=== PATIENT | female | born 1945 | race Caucasian/White ===

== ENCOUNTER 2022-02-19 21:07 | Inpatient (IN) | payer MEDICARE ==
[~2022-02-19] VITALS: Ht 154.9 cm; Wt 65.3 kg
--- NOTE | 2022-02-19 20:30 | NUR ---
Admitted this 76 y/o female from [facility] via [facility]. Awake, alert and oriented x 4. Not in resp distress. Transferred from [facility] to bed with 2 person assist. Oriented to room, staffs, call light, TV remote and bed control. Routine admission care done, plan of care initiated. Safety measures and fall precaution initiated. Call light within reach.
--- NOTE | 2022-02-19 20:31 | NUR ---
Patient admitted with muñoz cath intact and patent draining to yellow color urine, no hematuria, no sediments noted.
[2022-02-19 20:33] VITALS: BP 142/59
[2022-02-19] MEDS ORDERED: REMEDY ESSENTIAL ZINC PASTE 113 GM TOP SCH (21:30)
[2022-02-19] MEDS ORDERED: LEVO75TA7 PO (21:56)
[2022-02-19] MEDS ORDERED: DOCU100C36 PO (21:56)
[2022-02-19] MEDS ORDERED: RIVA10TA PO (21:56)
[2022-02-19] MEDS ORDERED: FLEC100T2 PO (21:56)
[2022-02-20 04:03] VITALS: BP 133/45
[2022-02-20] MEDS ORDERED: REMEDY ESSENTIAL ZINC PASTE 113 GM TOP PRN (05:29)
[2022-02-20] MEDS: LEVOTHYROXINE SODIUM 75 MCG TABLET PO SCH (06:18)
[2022-02-20 08:00] VITALS: BP 126/58
[2022-02-20] MEDS: DOCUSATE SODIUM 100 MG CAPSULE PO SCH ×2 (08:54→17:24)
[2022-02-20] MEDS: HYDROCODONE/APAP 10-325 MG TABLET PO PRN (08:55)
--- NOTE | 2022-02-20 08:55 | NUR ---
LAERT AND ORIENTED C/O INCISIONAL PAIN MEDICATED WITH TYLENOL WITH CODEINE ORDERED AND READY FOR THERAPEUTIC EXERCISES WILL CONTINUE TO OBSERVE.
[2022-02-20] MEDS: FLECAINIDE ACETATE 100 MG TABLET PO SCH ×2 (08:56→17:18)
[2022-02-20] MEDS ORDERED: RIVAROXABAN 10 MG TABLET PO SCH ×2 (09:00)
[2022-02-20 16:03] VITALS: BP 120/44
[2022-02-20] MEDS: RIVAROXABAN 10 MG TABLET PO SCH (17:18)
--- NOTE | 2022-02-20 18:00 | NUR ---
RESTING IN PAIN STATED NO PAIN AT THIS TIME XARELTO GIVEN ORDERED WITH NO ADVERSE EFFECTS AT THIS TIME WILL CONTINUE TO OBSERVE.
[2022-02-20 21:23] VITALS: BP 127/76
--- NOTE | 2022-02-21 03:00 | NUR ---
Schwartz cath removed per Mike Villegas NP order. No noted urinary retention, no c/o bladder discomfort at this time.
[2022-02-21 04:43] VITALS: BP 140/59
[2022-02-21] MEDS: LEVOTHYROXINE SODIUM 75 MCG TABLET PO SCH (06:32)
[2022-02-21 08:00] VITALS: BP 129/56
[2022-02-21] MEDS: HYDROCODONE/APAP 10-325 MG TABLET PO PRN (08:25)
[2022-02-21] MEDS: FLECAINIDE ACETATE 100 MG TABLET PO SCH ×2 (08:25→16:41)
[2022-02-21] MEDS: DOCUSATE SODIUM 100 MG CAPSULE PO SCH ×2 (08:25→16:41)
--- NOTE | 2022-02-21 08:25 | NUR ---
AWAKE ALERT AND ORIENTED REQUESTING FOR PAIN MEDICATION IN PREPARATION FOR PHYSICAL THERAPEUTIC EXERCISES NORCO GIVEN ORDERED.S/P DANIELSON CATH REMOVAL NOT VOIDED YET FLUIDS ENCOURAGED.CALL LIGHTS AND PERSONAL BELONGINGS ARE WITHIN EASY REACH WILL CONTINUE TO OBSERVE.
--- NOTE | 2022-02-21 12:00 | NUR ---
PATIENT VOIDED ADEQUATE AMOUNT PATIENT STATED THAT SHE HAS NOT MOVED HER BOWEL AND IS CONSTIPATED BRIGID PROVIDER NOTIFIED WITH ORDERS WILL CONTINUE TO OBSERVE.
[2022-02-21] MEDS: MIRALAX 17 GM POWD.PACK PO SCH (12:54)
--- NOTE | 2022-02-21 15:00 | NUR ---
PER THE THERAPIST PATIENT HAD C/O HAS SOME TINGLING ON HER RIGHT LEG BUT WHEN I CHECKED PATIENT STATED IT WAS TEMPORARY AND WENT AWAY SHE HAS ADEQUATE CIRCULATION AND ABLE TO WIGGLE HER TOES AND LEG WILL CONTINUE TO OBSERVE AND INFORM MD NEEDED.
--- NOTE | 2022-02-21 17:04 | NUR ---
NOTED SMALL AMOUNT OF SEROUS DRAINAGE ON THE SURGICAL DRESSING CLEANSED WITH NORMAL SALINE AND CHANGED WITH DRY SURGICAL DRESSING MAGY INTACT WILL CONTINUE TO OBSERVE.
[2022-02-21] MEDS: RIVAROXABAN 10 MG TABLET PO SCH (17:10)
--- NOTE | 2022-02-21 18:12 | NUR ---
CONTINUE ON XARELTO ORDERED WITH NO S/S OF BLEEDING AT THIS TIME.
[2022-02-21 20:00] VITALS: BP 97/61
[2022-02-22 04:00] VITALS: BP 131/51
[2022-02-22 06:09] LABS: HEMATOCRIT 28.5 % (31.2-41.9); MEAN CORPUSCULAR HEMOGLOBIN 30.1 uug (24.7-32.8); MEAN CORPUSCULAR VOLUME 90.1 fL (75.5-95.3); PLATELET COUNT (AUTO) 339 K/uL (179-408)
[2022-02-22 06:15] LABS: CREATININE 0.6 mg/dL (0.6-1.3); POTASSIUM 3.9 mmol/L (3.5-5.1)
[2022-02-22] MEDS: LEVOTHYROXINE SODIUM 75 MCG TABLET PO SCH (06:23)
[2022-02-22 07:51] VITALS: BP 133/46
[2022-02-22] MEDS: HYDROCODONE/APAP 10-325 MG TABLET PO PRN (08:14)
[2022-02-22] MEDS: FLECAINIDE ACETATE 100 MG TABLET PO SCH ×2 (08:14→17:04)
[2022-02-22] MEDS: MIRALAX 17 GM POWD.PACK PO SCH (08:14)
[2022-02-22] MEDS: DOCUSATE SODIUM 100 MG CAPSULE PO SCH ×2 (08:14→17:04)
[2022-02-22 15:15] VITALS: BP 120/51
--- NOTE | 2022-02-22 16:01 | NUR ---
INDIVIDUALIZED PLAN OF CARE
[2022-02-22] MEDS: ENSURE ENLIVE (VAN) 240 ML LIQUID PO SCH (17:05)
[2022-02-22] MEDS: ARGININE/GLUTAMINE/CALCIUM BMB 1 EACH POWD.PACK PO SCH (17:05)
[2022-02-22] MEDS: RIVAROXABAN 10 MG TABLET PO SCH (17:07)
[2022-02-22 20:00] VITALS: BP 110/46
[2022-02-23 04:00] VITALS: BP 122/41
[2022-02-23] MEDS: LEVOTHYROXINE SODIUM 75 MCG TABLET PO SCH (06:02)
--- NOTE | 2022-02-23 07:27 | NUR ---
Patient alert oriented, no complain of pain, ambulate to toilet x 2, tolerate well, cont to monitor.
--- NOTE | 2022-02-23 07:31 | NUR ---
PATIENTS AWAKE ALERT AND ORIENTED DENIES PAIN OR DISCOMFORTS AT THIS TIME ON ROOM AIR WITH NO SHORTNESS OF BREATH AT THIS TIME RIGHT HIP WITH DRESSING INTACT CALL LIGHT AND PERSONAL BELONGINGS ARE WITHIN EASY REACH WILL CONTINUE TO OBSERVE.
[2022-02-23 07:59] VITALS: BP 117/56
[2022-02-23] MEDS: HYDROCODONE/APAP 10-325 MG TABLET PO PRN (08:45)
[2022-02-23] MEDS: DOCUSATE SODIUM 100 MG CAPSULE PO SCH ×2 (08:45→16:49)
[2022-02-23] MEDS: MIRALAX 17 GM POWD.PACK PO SCH (08:45)
[2022-02-23] MEDS: FLECAINIDE ACETATE 100 MG TABLET PO SCH ×2 (08:46→16:49)
[2022-02-23] MEDS: ARGININE/GLUTAMINE/CALCIUM BMB 1 EACH POWD.PACK PO SCH ×2 (08:48→16:51)
[2022-02-23] MEDS: ENSURE ENLIVE (VAN) 240 ML LIQUID PO SCH ×2 (08:49→16:51)
--- NOTE | 2022-02-23 09:54 | NUR ---
UP ON THE CHAIR FOR PHYSICAL THERAPEUTIC EXERCISES WAS PRE MEDICATED WITH NORCO FOR PAIN MADE COMFORTABLE WILL CONTINUE TO OBSERVE.
--- NOTE | 2022-02-23 12:27 | NUR ---
INTERDISCIPLINARY TEAM CONFERENCE
[2022-02-23 15:50] VITALS: BP 133/48
[2022-02-23] MEDS: RIVAROXABAN 10 MG TABLET PO SCH (16:50)
[2022-02-23 20:00] VITALS: BP 145/58
--- NOTE | 2022-02-23 20:09 | NUR ---
nsg: Received Patient alert oriented lying on bed. no complain of pain, daughter @ bed side. call light w/in reach. cont to monitor.
--- NOTE | 2022-02-24 02:07 | NUR ---
RESTING IN BED COMFORTABLY.
[2022-02-24] MEDS: LEVOTHYROXINE SODIUM 75 MCG TABLET PO SCH (06:09)
--- NOTE | 2022-02-24 06:26 | NUR ---
Nsg: Remain calm and cooperative with meds and care. denies pain or discomfort at this time. assisted with adl's. patient ambulate with fww. had bm last night. resting in bed comfortably. call light w/in reach.
[2022-02-24] MEDS: ARGININE/GLUTAMINE/CALCIUM BMB 1 EACH POWD.PACK PO SCH ×2 (08:05→16:09)
[2022-02-24] MEDS: DOCUSATE SODIUM 100 MG CAPSULE PO SCH ×2 (08:05→16:09)
[2022-02-24] MEDS: ENSURE ENLIVE (VAN) 240 ML LIQUID PO SCH ×2 (08:05→16:09)
[2022-02-24] MEDS: FLECAINIDE ACETATE 100 MG TABLET PO SCH ×2 (08:05→16:09)
[2022-02-24] MEDS: MIRALAX 17 GM POWD.PACK PO SCH (08:05)
[2022-02-24 08:28] VITALS: BP 124/44
[2022-02-24] MEDS: HYDROCODONE/APAP 10-325 MG TABLET PO PRN (10:47)
[2022-02-24 16:09] VITALS: BP_SYST 114; BP_DIAS 36; BP_DIAS 46
[2022-02-24] MEDS: RIVAROXABAN 10 MG TABLET PO SCH (17:07)
--- NOTE | 2022-02-24 19:15 | NUR ---
Received patient on bed, awake, alert and oriented, not in respiratory distress, no complaint of pain, safety precautions provided, call light within reach.
--- NOTE | 2022-02-25 05:13 | NUR ---
Slept well, no complaint within the shift. Not in labored breathing. Patient in fair condition.
[2022-02-25] MEDS: LEVOTHYROXINE SODIUM 75 MCG TABLET PO SCH (06:11)
[2022-02-25 07:03] LABS: HEMATOCRIT 27.2 % (31.2-41.9); MEAN CORPUSCULAR HEMOGLOBIN 30.4 uug (24.7-32.8); MEAN CORPUSCULAR VOLUME 90.1 fL (75.5-95.3); PLATELET COUNT (AUTO) 447 K/uL (179-408)
[2022-02-25 07:49] LABS: THYROID STIMULATING HORMONE 0.995 mIU/mL (0.358-3.740)
[2022-02-25 08:02] LABS: BILIRUBIN,TOTAL 0.3 mg/dL (0.2-1.0); CREATININE 0.6 mg/dL (0.6-1.3); MAGNESIUM 2.2 mg/dL (1.8-2.4); PHOSPHOROUS 3.7 mg/dL (2.5-4.9)
[2022-02-25] MEDS: ARGININE/GLUTAMINE/CALCIUM BMB 1 EACH POWD.PACK PO SCH ×2 (08:02→16:11)
[2022-02-25] MEDS: DOCUSATE SODIUM 100 MG CAPSULE PO SCH ×2 (08:02→16:10)
[2022-02-25] MEDS: FLECAINIDE ACETATE 100 MG TABLET PO SCH ×2 (08:02→16:11)
[2022-02-25] MEDS: MIRALAX 17 GM POWD.PACK PO SCH (08:02)
[2022-02-25] MEDS: ENSURE ENLIVE (VAN) 240 ML LIQUID PO SCH ×2 (08:02→16:11)
[2022-02-25] MEDS: HYDROCODONE/APAP 10-325 MG TABLET PO PRN ×2 (08:02→13:46)
[2022-02-25 08:18] VITALS: BP 128/56
[2022-02-25] MEDS: CYANOCOBALAMIN 1000 MCG/ML VIAL IM SCH (09:05)
[2022-02-25 16:26] VITALS: BP 122/51
[2022-02-25] MEDS: RIVAROXABAN 10 MG TABLET PO SCH (17:03)
--- NOTE | 2022-02-25 19:30 | NUR ---
Family is in the patient`s room, son (Evangelista) wants to speak with particular person to ask about the bathing , PT and whole management of the patient . Superintendent Custodian Janitor informed, said he will speak with the son via mobile phone .
[2022-02-25 20:00] VITALS: BP 139/62
[2022-02-26 04:24] VITALS: BP 94/55
[2022-02-26] MEDS: LEVOTHYROXINE SODIUM 75 MCG TABLET PO SCH (05:53)
[2022-02-26 07:45] VITALS: BP 134/58
[2022-02-26] MEDS: ENSURE ENLIVE (VAN) 240 ML LIQUID PO SCH ×2 (08:00→16:12)
[2022-02-26] MEDS: HYDROCODONE/APAP 10-325 MG TABLET PO PRN (08:05)
[2022-02-26] MEDS: MIRALAX 17 GM POWD.PACK PO SCH (08:05)
[2022-02-26] MEDS: FLECAINIDE ACETATE 100 MG TABLET PO SCH ×2 (08:05→16:14)
[2022-02-26] MEDS: DOCUSATE SODIUM 100 MG CAPSULE PO SCH ×2 (08:06→16:12)
[2022-02-26] MEDS: ARGININE/GLUTAMINE/CALCIUM BMB 1 EACH POWD.PACK PO SCH ×2 (08:06→16:13)
[2022-02-26] MEDS: CYANOCOBALAMIN 1000 MCG/ML VIAL IM SCH (08:06)
[2022-02-26 16:30] VITALS: BP 115/52
[2022-02-26] MEDS: RIVAROXABAN 10 MG TABLET PO SCH (17:08)
--- NOTE | 2022-02-26 19:00 | NUR ---
Received patient on bed, awake, alert and oriented x3 forgetful. no complaint pain, not in respiratory distress. Safety precautions provided, call light within reach.
[2022-02-26 20:00] VITALS: BP 118/38
[2022-02-27] MEDS: HYDROCODONE/APAP 10-325 MG TABLET PO PRN ×2 (02:26→08:44)
[2022-02-27 04:00] VITALS: BP 127/40
[2022-02-27] MEDS: LEVOTHYROXINE SODIUM 75 MCG TABLET PO SCH (06:15)
[2022-02-27 08:00] VITALS: BP 123/45
[2022-02-27] MEDS: ENSURE ENLIVE (VAN) 240 ML LIQUID PO SCH ×2 (08:00→16:06)
[2022-02-27] MEDS: ARGININE/GLUTAMINE/CALCIUM BMB 1 EACH POWD.PACK PO SCH ×2 (08:01→16:06)
[2022-02-27] MEDS: DOCUSATE SODIUM 100 MG CAPSULE PO SCH ×2 (08:02→16:06)
[2022-02-27] MEDS: MIRALAX 17 GM POWD.PACK PO SCH (08:02)
[2022-02-27] MEDS: CYANOCOBALAMIN 1000 MCG/ML VIAL IM SCH (08:02)
[2022-02-27] MEDS: FLECAINIDE ACETATE 100 MG TABLET PO SCH ×2 (08:02→16:56)
[2022-02-27] MEDS: RIVAROXABAN 10 MG TABLET PO SCH (17:05)
[2022-02-27 17:19] VITALS: BP 142/55
--- NOTE | 2022-02-27 19:30 | NUR ---
Received pt awake, alert and orientedx3. Pt in no acute distress. Safety and comfort provided. Will continue to monitor.
[2022-02-27 20:04] VITALS: BP 121/61
[2022-02-28 04:00] VITALS: BP 125/45
--- NOTE | 2022-02-28 05:29 | NUR ---
Pt slept comfortably. Pt in no acute distress. Prescribed medication given and pt tolerated it well.Vital signs within normal limit. All needs are met. Safety and comfort provided. Will endorse to incoming nurse for continuity of care.
[2022-02-28] MEDS: LEVOTHYROXINE SODIUM 75 MCG TABLET PO SCH (06:07)
[2022-02-28 07:49] VITALS: BP 122/52
[2022-02-28] MEDS: ENSURE ENLIVE (VAN) 240 ML LIQUID PO SCH ×2 (08:00→16:21)
[2022-02-28] MEDS: MIRALAX 17 GM POWD.PACK PO SCH (08:07)
[2022-02-28] MEDS: HYDROCODONE/APAP 10-325 MG TABLET PO PRN ×2 (08:08→16:41)
[2022-02-28] MEDS: ARGININE/GLUTAMINE/CALCIUM BMB 1 EACH POWD.PACK PO SCH ×2 (08:08→16:21)
[2022-02-28] MEDS: DOCUSATE SODIUM 100 MG CAPSULE PO SCH ×2 (08:08→16:22)
[2022-02-28] MEDS: FLECAINIDE ACETATE 100 MG TABLET PO SCH ×2 (08:08→16:23)
[2022-02-28] MEDS: CYANOCOBALAMIN 1000 MCG/ML VIAL IM SCH (08:08)
[2022-02-28 16:04] VITALS: BP 127/48
[2022-02-28] MEDS: RIVAROXABAN 10 MG TABLET PO SCH (17:01)
[2022-02-28 20:08] VITALS: BP 108/45
[2022-03-01 04:10] VITALS: BP 113/45
[2022-03-01] MEDS: LEVOTHYROXINE SODIUM 75 MCG TABLET PO SCH (06:09)
--- NOTE | 2022-03-01 08:00 | NUR ---
RECEIVED PATIENT IN BED AWAKE ALERT AND ORIENTED ON ROOM AIR WITH NO S/S OF SHORTNESS OF BREATH AT THIS TIME.CALL LIGHTS AND PERSONAL BELONGINGS ARE WITHIN EASY REACH WILL CONTINUE WITH PT/OT ORDERED WILL CONTINUE TO OBSERVE.
[2022-03-01 08:15] VITALS: BP 129/49
[2022-03-01] MEDS: FLECAINIDE ACETATE 100 MG TABLET PO SCH ×2 (08:37→17:16)
[2022-03-01] MEDS: DOCUSATE SODIUM 100 MG CAPSULE PO SCH ×2 (08:37→17:14)
[2022-03-01] MEDS: CYANOCOBALAMIN 1000 MCG/ML VIAL IM SCH (08:37)
[2022-03-01] MEDS: HYDROCODONE/APAP 10-325 MG TABLET PO PRN ×3 (08:38→22:09)
[2022-03-01] MEDS: MIRALAX 17 GM POWD.PACK PO SCH (08:40)
[2022-03-01] MEDS: ARGININE/GLUTAMINE/CALCIUM BMB 1 EACH POWD.PACK PO SCH ×2 (08:40→17:00)
[2022-03-01] MEDS: ENSURE ENLIVE (VAN) 240 ML LIQUID PO SCH ×2 (08:41→17:00)
[2022-03-01 16:33] VITALS: BP 96/47
[2022-03-01] MEDS: RIVAROXABAN 10 MG TABLET PO SCH (17:15)
--- NOTE | 2022-03-01 18:00 | NUR ---
PATIENT MEDICATED WITH NORCO X2 FOR C/O PAIN AND EFFECTIVE TOLERATED PT/OT ORDERED WITH GOOD ENDURANCE TODAY.
[2022-03-01 19:54] VITALS: BP 108/47
--- NOTE | 2022-03-02 05:17 | NUR ---
Slept throughout the night. No distress noted. Able to make needs known. C/o minimal pain in right hip that is relieved by norco. Will endorse to day shift.
[2022-03-02] MEDS: LEVOTHYROXINE SODIUM 75 MCG TABLET PO SCH (06:06)
[2022-03-02 06:46] VITALS: BP 121/49
[2022-03-02 07:52] VITALS: BP 107/44
[2022-03-02] MEDS: ENSURE ENLIVE (VAN) 240 ML LIQUID PO SCH ×2 (08:00→17:00)
[2022-03-02] MEDS: DOCUSATE SODIUM 100 MG CAPSULE PO SCH ×2 (08:38→16:47)
[2022-03-02] MEDS: CYANOCOBALAMIN 1000 MCG/ML VIAL IM SCH (08:38)
[2022-03-02] MEDS: FLECAINIDE ACETATE 100 MG TABLET PO SCH ×2 (08:38→17:05)
[2022-03-02] MEDS: HYDROCODONE/APAP 10-325 MG TABLET PO PRN ×2 (08:39→21:52)
[2022-03-02] MEDS: ARGININE/GLUTAMINE/CALCIUM BMB 1 EACH POWD.PACK PO SCH ×2 (09:00→17:00)
[2022-03-02] MEDS: MIRALAX 17 GM POWD.PACK PO SCH (09:00)
--- NOTE | 2022-03-02 15:16 | NUR ---
INTERDISCIPLINARY TEAM CONFERENCE
[2022-03-02 16:12] VITALS: BP 124/47
[2022-03-02] MEDS: RIVAROXABAN 10 MG TABLET PO SCH (17:06)
--- NOTE | 2022-03-02 18:17 | NUR ---
MEDICATED FOR PAIN PER HER REQUEST [facility] ORDERED RESTING COMFORTABLY AT THIS TIME
[2022-03-02 20:00] VITALS: BP 102/66
[2022-03-02] MEDS ORDERED: MAG HYDROX/AL HYDROX/SIMETH 30 ML LIQUID UDC PO ONE (21:45)
--- NOTE | 2022-03-02 22:30 | NUR ---
PT COMPLAINED OF GAS PAINS. MAALOX GIVEN PER MD ORDER. PT ALSO COMPLAINED OF PAIN ON RIGHT HIP FROM THE DRESSING TAPE OF INCISION THIS MORNING. NORCO GIVEN ORDERED. WILL REASSESS.
[2022-03-03 04:00] VITALS: BP 133/58
[2022-03-03] MEDS: LEVOTHYROXINE SODIUM 75 MCG TABLET PO SCH (06:38)
[2022-03-03 08:00] VITALS: BP 127/48
[2022-03-03] MEDS: ENSURE ENLIVE (VAN) 240 ML LIQUID PO SCH ×2 (08:00→16:13)
[2022-03-03] MEDS: HYDROCODONE/APAP 10-325 MG TABLET PO PRN ×2 (08:02→20:52)
[2022-03-03] MEDS: ARGININE/GLUTAMINE/CALCIUM BMB 1 EACH POWD.PACK PO SCH ×2 (08:02→16:13)
[2022-03-03] MEDS: DOCUSATE SODIUM 100 MG CAPSULE PO SCH ×2 (08:02→16:38)
[2022-03-03] MEDS: FLECAINIDE ACETATE 100 MG TABLET PO SCH ×2 (08:02→16:38)
[2022-03-03] MEDS: MIRALAX 17 GM POWD.PACK PO SCH (08:02)
--- NOTE | 2022-03-03 13:52 | NUR ---
offer the pt shower and dressing change pt refused .pt said she have pain and she is tied she wants to sleep .charge nurse and md made aware
[2022-03-03] MEDS: ACETAMINOPHEN 325 MG TABLET PO PRN (15:47)
[2022-03-03] MEDS: RIVAROXABAN 10 MG TABLET PO SCH (17:23)
[2022-03-03 20:00] VITALS: BP 122/58
[2022-03-04 04:00] VITALS: BP 126/48
--- NOTE | 2022-03-04 05:14 | NUR ---
Pt slept through out the night. Complained of headache, requested for [place]. Medication given as ordered. No complaints as of this time. All needs attended. Safety precautions observed. Will endorse to incoming nurse.
[2022-03-04] MEDS: LEVOTHYROXINE SODIUM 75 MCG TABLET PO SCH (06:16)
[2022-03-04] MEDS: ENSURE ENLIVE (VAN) 240 ML LIQUID PO SCH ×2 (08:00→16:16)
[2022-03-04 08:06] VITALS: BP 126/53
[2022-03-04] MEDS: FLECAINIDE ACETATE 100 MG TABLET PO SCH ×2 (08:08→16:16)
[2022-03-04] MEDS: HYDROCODONE/APAP 10-325 MG TABLET PO PRN (08:08)
[2022-03-04] MEDS: DOCUSATE SODIUM 100 MG CAPSULE PO SCH ×2 (08:08→16:16)
[2022-03-04] MEDS: MIRALAX 17 GM POWD.PACK PO SCH (08:08)
[2022-03-04] MEDS: ARGININE/GLUTAMINE/CALCIUM BMB 1 EACH POWD.PACK PO SCH ×2 (08:09→16:17)
[2022-03-04] MEDS: ACETAMINOPHEN 325 MG TABLET PO PRN (11:46)
[2022-03-04 15:42] VITALS: BP 103/51
[2022-03-04] MEDS: RIVAROXABAN 10 MG TABLET PO SCH (17:01)
[2022-03-04 20:00] VITALS: BP 113/58
[2022-03-04] MEDS ORDERED: TEMAZEPAM 15 MG CAPSULE PO PRN (22:15)
[2022-03-05 04:00] VITALS: BP 138/61
[2022-03-05] MEDS: LEVOTHYROXINE SODIUM 75 MCG TABLET PO SCH (06:21)
[2022-03-05 07:30] VITALS: BP 138/54
[2022-03-05] MEDS: MIRALAX 17 GM POWD.PACK PO SCH (08:33)
[2022-03-05] MEDS: FLECAINIDE ACETATE 100 MG TABLET PO SCH (08:33)
[2022-03-05] MEDS: DOCUSATE SODIUM 100 MG CAPSULE PO SCH (08:33)
[2022-03-05] MEDS: ENSURE ENLIVE (VAN) 240 ML LIQUID PO SCH (08:33)
[2022-03-05] MEDS: ARGININE/GLUTAMINE/CALCIUM BMB 1 EACH POWD.PACK PO SCH (08:34)
[2022-03-05] MEDS: HYDROCODONE/APAP 10-325 MG TABLET PO PRN (11:43)
--- NOTE | 2022-03-05 13:53 | NUR ---
patient is alert, oriented x4, no sob, respirations are even nonlabored, skin warm and dry to touch, able to ambulate with fww, discharged home, son in law Keith and picked her up, patient brought to her car, transferred safely in the car, teaching provided to patient about her each medications, patient verbalized understanding of it, patient is given follow up instructions with dr Escalante, address and phone number corrected on instructions paper, and given to son in law as well, patient verbalized understanding of it, No IV access. ID removed, patient son in law very aggressive, yelling screaming to staff regarding patient sustained abrasion next to right hip incision site from adhesive tape. verbal and written instructions given to patient regarding care about abrasion and incision care, patient verbalized understanding of it. no acute distress noted, no signs and symptoms of infections noted at abrasion, and at right hip incision site. Addendum: 03/05/22 at 1412 by ERICKA ARCHIBALD RN, RN patient provided with CD to take it to the dr escalante appointment
== END 2022-03-05 14:00 | disposition home health service (06) | DRG 561 ==
PROVIDERS: ADMIT Physical Medicine & Rehabilitation Pain Medicine; ATTEND Physical Medicine & Rehabilitation Pain Medicine
DX: S72.011D Unspecified intracapsular fracture of right femur, subsequent encounter for closed fracture with routine healing (principal); W01.0XXD Fall on same level from slipping, tripping and stumbling without subsequent striking against object, subsequent encounter; I48.0 Paroxysmal atrial fibrillation; E03.9 Hypothyroidism, unspecified; D50.9 Iron deficiency anemia, unspecified; E53.8 Deficiency of other specified B group vitamins; E66.9 Obesity, unspecified; Z88.5 Allergy status to narcotic agent; Z79.01 Long term (current) use of anticoagulants; Z90.49 Acquired absence of other specified parts of digestive tract; Z96.641 Presence of right artificial hip joint; Z20.822 Contact with and (suspected) exposure to COVID-19; Z82.49 Family history of ischemic heart disease and other diseases of the circulatory system
CPT/HCPCS: 36415; 73502; 83550; 83735; 84100; 84443; 85025; 85610; 97161; 97535-GO-CO; A4663; J3420